=== PATIENT | male | born 1990 | race Caucasian/White ===

== ENCOUNTER 2025-04-26 22:43 | Inpatient (IN) | payer MEDICAID ==
[~2025-04-26] VITALS: Ht 170.2 cm; Wt 69.9 kg
[2025-04-26 22:46] VITALS: O2SAT 99
[2025-04-26 23:40] LABS: CHLORIDE 104 mEq/L (98-107); POTASSIUM 3.4 mEq/L (3.5-5.1); SODIUM 138 mEq/L (136-145)
[2025-04-26 23:41] LABS: CALCIUM 8.9 mg/dL (8.7-10.4); CARBON DIOXIDE 29 mEq/L (21-32)
[2025-04-26 23:46] LABS: CREATININE 0.9 mg/dL (0.6-1.3); GLUCOSE 99 mg/dL (70-105); UREA NITROGEN BLOOD 21 mg/dL (9-23)
[2025-04-26 23:57] LABS: BASOPHILS % 0.8 % (0.0-2.0); EOSINOPHILS % 2.6 % (0.0-5.0); HEMATOCRIT. 39.7 % (42.0-52.0); HEMOGLOBIN. 13.4 g/dL (14.0-18.0); LYMPHOCYTES % 17.8 % (20.0-50.0); MEAN CORPUSCULAR HEMOGLOBIN 28.6 pg (28.0-32.0); MEAN CORPUSCULAR HGB CONC 33.7 g/dL (31.0-37.0); MEAN CORPUSCULAR VOLUME 84.9 fL (80.0-94.0); MEAN PLATELET VOLUME 6.9 fl (7.4-10.4); MONOCYTES % 9.2 % (2.0-8.0); NEUTROPHILS % 69.6 % (40.0-76.0); PLATELET 294 x1000/uL (130-400); RED BLOOD CELL COUNT 4.68 mill/uL (4.7-6.1); WHITE BLOOD COUNT 4.5 x1000/uL (4.5-11.0)
[2025-04-27] MEDS: SODIUM CHLORIDE 0.9% 1,000 ML IV ONE (00:02)
[2025-04-27] MEDS: ONDANSETRON HCL 4MG/2ML INJ IV ONE (00:02)
[2025-04-27] MEDS: MORPHINE SULFATE 4 MG/ML INJ (FOR IV/IM USE) IV ONE (00:03)
[2025-04-27] MEDS ORDERED: NAPR220C61 MT (01:25)
[2025-04-27] MEDS ORDERED: ACET-2708 MT (01:26)
[2025-04-27] MEDS ORDERED: IOHEXOL-350 100 ML BOTTLE ONE (05:07)
[2025-04-27 05:47] VITALS: BP 122/76; PULSE 59; RESP 20; TEMP 35.8
[2025-04-27] MEDS ORDERED: NALOXONE HCL 0.4MG/ML VIAL IV PRN (06:45)
[2025-04-27 08:00] VITALS: BP 110/70; PULSE 61; RESP 18; TEMP 36.1; O2SAT 98
[2025-04-27] MEDS: POTASSIUM CHLORIDE 20MEQ TABLET SR PO SCH (08:22)
[2025-04-27] MEDS: HYDROCODONE/ACETAMINOPHEN 5/325MG TABLET PO PRN ×2 (08:23→20:31)
[2025-04-27 12:00] VITALS: BP 117/78; PULSE 66; RESP 19; TEMP 36.5; O2SAT 97
[2025-04-27 12:27] LABS: BASOPHILS % 0.5 % (0.0-2.0); EOSINOPHILS % 0.6 % (0.0-5.0); HEMATOCRIT. 38.3 % (42.0-52.0); HEMOGLOBIN. 12.9 g/dL (14.0-18.0); LYMPHOCYTES % 11.7 % (20.0-50.0); MEAN CORPUSCULAR HEMOGLOBIN 28.8 pg (28.0-32.0); MEAN CORPUSCULAR HGB CONC 33.7 g/dL (31.0-37.0); MEAN CORPUSCULAR VOLUME 85.5 fL (80.0-94.0); MEAN PLATELET VOLUME 6.9 fl (7.4-10.4); MONOCYTES % 8.5 % (2.0-8.0); NEUTROPHILS % 78.7 % (40.0-76.0); PLATELET 268 x1000/uL (130-400); RED BLOOD CELL COUNT 4.48 mill/uL (4.7-6.1); RED CELL DISTRIBUTION WIDTH 14.8 % (11.6-14.6); WHITE BLOOD COUNT 4.5 x1000/uL (4.5-11.0)
[2025-04-27 12:29] LABS: CHLORIDE 102 mEq/L (98-107); SODIUM 136 mEq/L (136-145)
[2025-04-27 12:30] LABS: CARBON DIOXIDE 26 mEq/L (21-32)
[2025-04-27 12:31] LABS: CALCIUM 8.7 mg/dL (8.7-10.4)
[2025-04-27 12:35] LABS: CREATININE 0.7 mg/dL (0.6-1.3); GLUCOSE 118 mg/dL (70-105)
[2025-04-27 12:36] LABS: UREA NITROGEN BLOOD 15 mg/dL (9-23)
[2025-04-27] MEDS ORDERED: DOCUSATE SODIUM 100MG CAPSULE PO PRN (13:00)
[2025-04-27] MEDS ORDERED: ONDANSETRON HCL 4MG/2ML INJ IV PRN (13:00)
[2025-04-27] MEDS ORDERED: ACETAMINOPHEN 325MG TABLET PO PRN ×2 (13:00)
[2025-04-27] MEDS ORDERED: IPRATROPIUM/ALBUTEROL 0.5-3(2.5)MG/3ML NEB HHN PRN (13:00)
[2025-04-27] MEDS ORDERED: CLONIDINE 0.1MG TABLET PO PRN (13:00)
[2025-04-27] MEDS: ENOXAPARIN 40MG/0.4ML SYR SUBCUT SCH (14:00)
[2025-04-27] MEDS: MORPHINE SULFATE 2 MG/ML INJ (NOT FOR IM USE) IV PRN (14:04)
[2025-04-27 16:00] VITALS: BP 114/72; PULSE 64; RESP 20; TEMP 36.7; O2SAT 98
[2025-04-27 19:48] LABS: *AMPHETAMINES SCREEN URINE PRESUMPTIVE POSITIVE (NEGATIVE); *BARBITURATES SCREEN URINE NEGATIVE (NEGATIVE); *BENZODIAZEPINES SCREEN URINE NEGATIVE (NEGATIVE); *COCAINE SCREEN URINE NEGATIVE (NEGATIVE); METHADONE URINE SCREEN NEGATIVE (NEGATIVE); OPIATES URINE SCREEN PRESUMPTIVE POSITIVE (NEGATIVE); PHENCYCLIDINE URINE SCREEN NEGATIVE (NEGATIVE)
[2025-04-27 19:49] LABS: CANNABINOID URINE SCREEN PRESUMPTIVE POSITIVE (NEGATIVE); ECSTASY MDMA SCREEN URINE NEGATIVE (NEGATIVE)
[2025-04-27 20:00] VITALS: BP 112/72; PULSE 69; RESP 20; TEMP 36.5; O2SAT 97
[2025-04-27 20:59] LABS: HEPATITIS B SURFACE ANTIGEN NEGATIVE (Negative)
[2025-04-27 21:20] LABS: HEPATITIS C AB NON REACTIVE (Neg) (Negative)
[2025-04-28] VITALS: BP 107/68; PULSE 68; RESP 20; TEMP 37.2; O2SAT 98
[2025-04-28 04:00] VITALS: BP 110/70; PULSE 59; RESP 18; TEMP 37.2; O2SAT 97
[2025-04-28] MEDS ORDERED: SKIN ADHESIVE 0.7 GM EA TOP ONE (06:37)
[2025-04-28] MEDS ORDERED: VANCOMYCIN HCL 1GM VIAL ONE (06:37)
[2025-04-28] MEDS ORDERED: POLYMYXIN B SULFATE 500000 UNITS/VIAL ONE (06:37)
[2025-04-28] MEDS ORDERED: LIDOCAINE HCL/EPINEPHRINE 1%-EPI 1:100,000 20ML VIAL ONE (06:37)
[2025-04-28] MEDS ORDERED: SUGAMMADEX SODIUM 200MG/2ML VIAL IV ONE (06:38)
[2025-04-28] MEDS: CEFAZOLIN 1000MG PREMIX 50 ML IV SCH (07:00)
[2025-04-28] MEDS ORDERED: ACETAMINOPHEN 325MG TABLET PO PRN (07:00)
[2025-04-28] MEDS ORDERED: DEXAMETHASONE 4MG/ML 1ML VIAL ONE (07:08)
[2025-04-28] MEDS ORDERED: ONDANSETRON HCL 4MG/2ML INJ ONE (07:08)
[2025-04-28] MEDS ORDERED: PROPOFOL 200MG/20ML VIAL IV ONE (07:08)
[2025-04-28] MEDS ORDERED: FENTANYL CITRATE/PF 50MCG/ML 2ML VIAL ONE (07:09)
[2025-04-28] MEDS ORDERED: MIDAZOLAM HCL 2 MG/2 ML VIAL ONE (07:09)
[2025-04-28] MEDS ORDERED: TRANEXAMIC ACID 1000MG PREMIX 200 ML IV ONE (07:26)
[2025-04-28] MEDS ORDERED: ONDANSETRON HCL 4MG/2ML INJ IV PRN (08:00)
[2025-04-28] MEDS ORDERED: LABETALOL 5MG/ML 4ML INJ IV PRN (08:00)
[2025-04-28] MEDS: MEPERIDINE HCL/PF 25MG/ML CPJ IV PRN (08:36)
[2025-04-28] MEDS: HYDROMORPHONE HCL/PF 1MG/ML INJ IV PRN (09:05)
[2025-04-28 10:04] VITALS: BP 127/82; PULSE 62; RESP 12; TEMP 36.4; O2SAT 95
[2025-04-28] MEDS: ASPIRIN 325MG EC TABLET PO SCH (11:12)
[2025-04-28 12:00] VITALS: BP 114/66; PULSE 83; RESP 12; TEMP 36.5; O2SAT 96
[2025-04-28 16:00] VITALS: BP 128/82; PULSE 81; RESP 14; TEMP 36.6; O2SAT 98
[2025-04-28] MEDS: HYDROCODONE/ACETAMINOPHEN 10/325MG TABLET PO PRN (17:03)
[2025-04-28 20:00] VITALS: BP 106/63; PULSE 78; RESP 19; TEMP 36.7; O2SAT 96
[2025-04-29] VITALS: BP 106/67; PULSE 73; RESP 18; TEMP 36.9; O2SAT 97
[2025-04-29 04:00] VITALS: BP 126/78; PULSE 65; RESP 18; TEMP 36.5; O2SAT 97
[2025-04-29 08:00] VITALS: BP 121/81; PULSE 65; RESP 18; TEMP 36.3; O2SAT 95
[2025-04-29 12:00] VITALS: BP 117/75; PULSE 77; RESP 18; TEMP 36.4; O2SAT 95
[2025-04-29 16:00] VITALS: BP 106/70; PULSE 72; RESP 18; TEMP 36.5; O2SAT 97
[2025-04-29 20:00] VITALS: BP 119/74; PULSE 97; RESP 17; TEMP 36.7; O2SAT 96
[2025-04-30] VITALS: BP 117/76; PULSE 82; RESP 18; TEMP 36.6; O2SAT 97
[2025-04-30 04:00] VITALS: BP 120/75; PULSE 95; RESP 17; TEMP 36.9; O2SAT 98
[2025-04-30 08:00] VITALS: BP 121/78; PULSE 78; RESP 16; TEMP 36.3; O2SAT 100
[2025-04-30 12:00] VITALS: BP 122/85; PULSE 96; RESP 18; TEMP 36.1; O2SAT 100
[2025-04-30 16:00] VITALS: BP 100/69; PULSE 77; RESP 17; TEMP 36.4; O2SAT 97
[2025-04-30 20:00] VITALS: BP 113/74; PULSE 76; RESP 18; TEMP 36.6; O2SAT 97
[2025-05-01] VITALS: BP 115/75; PULSE 78; RESP 19; TEMP 36.6; O2SAT 98
[2025-05-01 04:00] VITALS: BP 113/79; PULSE 75; RESP 17; TEMP 36.9; O2SAT 98
[2025-05-01 08:00] VITALS: BP 114/76; PULSE 79; RESP 19; TEMP 36.7; O2SAT 99
[2025-05-01 12:00] VITALS: BP 137/68; PULSE 74; RESP 18; TEMP 36.5; O2SAT 99
== END 2025-05-01 12:56 | disposition left against medical advice (07) | DRG 313 ==
LOC: ER 22:43 → 6EST 04-27 03:22 → EDBEDREQ 04-27 03:26 → ENRESERV 04-27 03:43
PROVIDERS: ADMIT Internal Medicine; ATTEND Internal Medicine
PROC: 2W3RX1Z Immobilization of Left Lower Leg using Splint (ICD-10-PCS; 2025-04-26)
PROC: 0QSKXZZ Reposition Left Fibula, External Approach (ICD-10-PCS; principal; 2025-04-28)
PROC: 0QSH04Z Reposition Left Tibia with Internal Fixation Device, Open Approach (ICD-10-PCS; 2025-04-28)
DX: S82.292A Other fracture of shaft of left tibia, initial encounter for closed fracture (principal); D64.9 Anemia, unspecified; S82.452A Displaced comminuted fracture of shaft of left fibula, initial encounter for closed fracture; D72.821 Monocytosis (symptomatic); Z53.29 Procedure and treatment not carried out because of patient's decision for other reasons; F15.90 Other stimulant use, unspecified, uncomplicated; F12.90 Cannabis use, unspecified, uncomplicated; F11.90 Opioid use, unspecified, uncomplicated; W18.39XA Other fall on same level, initial encounter; Z59.00 Homelessness unspecified; Y93.89 Activity, other specified; Y92.89 Other specified places as the place of occurrence of the external cause; Y99.8 Other external cause status
CPT/HCPCS: 36415; 73590; 73706; 76000; 80048; 80305; 85025; 86705; 86850; 86900; 87340; 97116; 97162; 99285; A4606; A6449; J0690; J1100; J1171; J2004; J2175; J2250; J2270; J2405; J2704; J3010; J3370; J3490; J7030; Q9967; C1713; C1769

== ENCOUNTER 2025-05-09 10:12 | Emergency (ER) | payer MEDICAID ==
[~2025-05-09] VITALS: Ht 167.6 cm; Wt 66.0 kg
[~2025-05-09 10:12] MED LIST: ACET-2708 MT; NAPR220C61 MT
[2025-05-09 10:18] VITALS: BP 109/69; TEMP 37.2; O2SAT 99
[2025-05-09 10:19] VITALS: PULSE 99; RESP 16; O2SAT 100
[2025-05-09] MEDS ORDERED: ACET-2708 MT (11:04)
[2025-05-09] MEDS ORDERED: ACETAMINOPHEN 325MG TABLET PO ONE (12:45)
[2025-05-09] MEDS ORDERED: BACITRACIN ZINC OINT UDPKT TOP ONE (12:45)
== END 2025-05-09 13:06 | disposition left against medical advice (07) ==
LOC: ER 10:12
DX: M79.605 Pain in left leg (principal)
CPT/HCPCS: 99283; Z7610; A6449